=== PATIENT | female | born 1940 | race Caucasian/White ===

== ENCOUNTER 2019-02-07 19:55 | Inpatient (IN) | payer OTHER ==
[~2019-02-07] VITALS: Ht 167.6 cm; Wt 65.3 kg
[2019-02-07 20:29] LABS: BE(vivo) -3.6 mmol/L (-2 to +3); HCO3 24.5 mmol/L (22.0-26.0); PCO2 58.1 mmHg (35.0-45.0); PO2 81.7 mmHg (80.0-100.0)
[2019-02-07 20:30] VITALS: BP 127/85
[2019-02-07 20:32] LABS: pH 7.243 (7.360-7.450)
[2019-02-07 20:37] LABS: HEMATOCRIT 34.5 % (37.0-47.0); HEMOGLOBIN 11.5 gm/dL (12.0-15.0); MCH 30.6 pg (26.0-34.0); MCHC 33.4 g/dL (28.0-37.0); MCV 91.8 fL (80.0-100.0); PLATELET COUNT 426 thou/uL (150-400); RBC 3.76 mil/uL (4.20-5.00); RDW 14.8 % (10.5-14.5)
[2019-02-07 20:49] LABS: ANION GAP 14 mmol/L (7-16); BUN 72 mg/dL (7-18); CALCIUM 9.5 mg/dL (8.5-10.1); CHLORIDE 102 mmol/L (98-107); CO2 26 mmol/L (21-32); CREATININE 2.1 mg/dL (0.6-1.0); GLUCOSE 164 mg/dL (74-106); POTASSIUM 4.2 mmol/L (3.5-5.1); SODIUM 142 mmol/L (136-145)
[2019-02-07 20:57] LABS: TROPONIN-I <0.06 ng/mL (<0.06)
[2019-02-07 21:06] LABS: ABSOLUTE NEUTROPHILS 15.6 thou/uL (1.4-8.2); ANISOCYTOSIS 1+; METAMYELOCYTES 5 %; NUCLEATED RBCS 2 /100WBC; POLYCHROMASIA OCCASIONAL
[2019-02-07 21:44] LABS: BE(vivo) -5.1 mmol/L (-2 to +3); HCO3 24.8 mmol/L (22.0-26.0); PO2 205.2 mmHg (80.0-100.0)
[2019-02-07 21:45] VITALS: BP 129/83
[2019-02-07 21:46] LABS: PCO2 73.6 mmHg (35.0-45.0); pH 7.146 (7.360-7.450)
[2019-02-07 22:20] LABS: BE(vivo) -7.6 mmol/L (-2 to +3); HCO3 23.3 mmol/L (22.0-26.0); PO2 249.2 mmHg (80.0-100.0); sO2 99.2 % (92.0-98.0)
[2019-02-07 22:22] LABS: PCO2 79.3 mmHg (35.0-45.0); pH 7.086 (7.360-7.450)
--- NOTE | 2019-02-07 22:45 | NUR ---
PT SEDATED AND INTUBATED BY DR JAEGER, AND PROPOFOL WAS STARTED. SEE EMAR.
--- NOTE | 2019-02-07 22:55 | NUR ---
HUGGINS CATHETER INSERTED.
[2019-02-08] VITALS (34 sets, daily range): BP systolic 105–151; BP diastolic 64–91
[2019-02-08 00:59] LABS: BE(vivo) -4.9 mmol/L (-2 to +3); HCO3 22.6 mmol/L (22.0-26.0); PO2 97.3 mmHg (80.0-100.0); sO2 96.3 % (92.0-98.0)
[2019-02-08 01:00] LABS: pH 7.248 (7.360-7.450)
[2019-02-08 05:20] LABS: HEMATOCRIT 30.5 % (37.0-47.0); HEMOGLOBIN 9.8 gm/dL (12.0-15.0); MCH 29.6 pg (26.0-34.0); MCHC 32.1 g/dL (28.0-37.0); MCV 92.4 fL (80.0-100.0); RBC 3.3 mil/uL (4.20-5.00); RDW 15.2 % (10.5-14.5); WBC 15.4 thou/uL (4.0-11.0)
[2019-02-08 05:31] LABS: HCO3 23.4 mmol/L (22.0-26.0); PCO2 52.9 mmHg (35.0-45.0); PO2 93.6 mmHg (80.0-100.0); pH 7.263 (7.360-7.450)
[2019-02-08 05:32] LABS: CALCIUM 8.6 mg/dL (8.5-10.1); CREATININE 1.8 mg/dL (0.6-1.0); POTASSIUM 3.8 mmol/L (3.5-5.1)
--- NOTE | 2019-02-08 05:49 | NUR ---
ADMISSION NOTE: ADMITTED IN FAIR CONDITION. NO FAMILY AT BEDSIDE. UNABLE TO ACQUIRE A DETIALED ADMISSION D/T PT BEING INTUBATED. TALKED TO DR. HERNANDEZ DURING THE NIGHT ABOUT CRITICAL ABGS AND PT'S STATUS. PT SEDATED ON PROPOFOL. FOLLOW COMMANDS OF SEDATION. DOES GET AGITATED. VSS. LOW GRADE TEMP. OG AT 57, MINIMAL OUTPUT. HUGIGNS IN PLACE AND OUTPUT NOTED. WILL CONTINUE TO MONITOR PT.
--- NOTE | 2019-02-08 05:52 | NUR ---
SEDATED ON VENT. RESTRAINTED FOR SAFETY. VSS. LOW GRADE TEMP. GET RESTLESS WITH ANY MINOR MOVEMENT ON SEDATION. OUTPUTS NOTED. INFORMED DR. HERNANDEZ ABOUT CRITICAL AM ABGS NO NEW ORDERS RECIEVED. WILL CONINTUE TO MONITOR
--- NOTE | 2019-02-08 08:27 | EKG ---
[place] [address] [facility] [employer] [place] [address] ELECTROCARDIOGRAM REPORT Name: AIMEE JHAVERI Room #: 243-P ADM IN M.R.#: [id number] ������������������ Admission: 02/07/19 ������������������ Attend Phys: Jonathan Narayan MD Discharge: ������������������ Date of : 44 Report #: [id number] ����������������������������������������������������������������� [id number] THIS REPORT FOR: //name// [facility] ED Test Date: 2019-02-07 Test Time: 20:40:58 Pat Name: AIMEE JHAVERI Department: Room: [facility] Gender: F 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: jlamblorraine : 1940 Requested By: Jose Angel Salmon Order Number: [id number] MD: Robin Bonilla Measurements Intervals [place] Rate: 116 P: 75 SD: 124 QRS: 61 QRSD: 94 T: -77 QT: 368 QTc: 512 Interpretive Statements Sinus tachycardia Nonspecific ST and T wave abnormality Prolonged QT interval Baseline wander in multiple lead(s) No previous ECG available for comparison Electronically Signed On 02-08-2019 8:27:17 CDT by Robin Bonilla [email or web address] ��������������������������������������������� <ELECTRONICALLY SIGNED> ���������������������������������������� By: Robin Bonilla MD, [facility] ��������������������������������������������� 02/08/19 0827 39 39 Robin Bonilla MD, [facility] /EPI
[2019-02-08] MEDS ORDERED: VENTOLIN HFA 1818 GM INH (09:49)
[2019-02-08] MEDS ORDERED: LIPITOR40 MG PO (09:49)
[2019-02-08] MEDS ORDERED: IPRAT-ALBUT 0.5-3 ML INH (09:50)
[2019-02-08] MEDS ORDERED: FOSAMAX 70 MG T70 MG PO (09:50)
[2019-02-08] MEDS ORDERED: ADVAIR HFA 230M12 GM INH (09:51)
[2019-02-08] MEDS ORDERED: EFFEXOR XR150 MG PO (09:51)
--- NOTE | 2019-02-08 14:24 | 2DMMODE ---
[facility] [address] [email or web address] [address] 2 D/M-MODE ECHOCARDIOGRAM Name: AIMEE JHAVERI Room #: 243-P ADM IN M.R.#: [id number] ������������� Admission: 02/07/19 ������������� Attend Phys: Jonathan Narayan Discharge: ��� ������������� ��� Date of : 44 Date of Service: 02/08/19 1424 �� Report #: [id number] �������� ��������������������������������������������[id number] THIS REPORT FOR: //name// APPROVED REPORT Study performed: 02/08/2019 12:50:43 EXAM: Comprehensive 2D, Doppler, and color-flow Echocardiogram Patient Location: ER Room #: 243 Status: routine BSA: 1.65 HR: 98 bpm BP: 112/66 mmHg Rhythm: NSR Other Information Study Quality: Adequate/Only subcostal views. Technically limited study due to COPD, patient in ICU on vent. Indications COPD Exacerbation, short of breath. 2D Dimensions IVSd: 7.94 (7-11mm) LVOT Diam: 19.95 (18-24mm) LVDd: 44.00 mm PWd: 9.01 (7-11mm) LVDs: 26.42 (25-40mm) Aortic Root: 31.69 mm Aortic Valve AoV Peak Fabiano.: 1.59 m/s AO Peak Gr.: 10.08 mmHg LVOT Max P.37 mmHg LVOT Max V: 1.05 m/s OLLIE Vmax: 2.06 cm2 Mitral Valve E/A Ratio: 0.7 MV Decel. Time: 157.37 ms MV E Max Fabiano.: 0.71 m/s MV A Fabiano.: 1.02 m/s MV PHT: 45.64 ms IVRT: 69.20 ms [facility] [address] [address] 2 D/M-MODE ECHOCARDIOGRAM Name: AIMEE JHAVERI Room #: [address] [place] [address] IN [facility].#: [id number] ������������� Admission: 02/07/19 ������������� Attend Phys: Jonathan Narayan Discharge: ��� ������������� ��� Date of : 44 Date of Service: 02/08/19 1424 �� Report #: [id number] �������� ��������������������������������������������[id number] Pulmonary Valve PV Peak Fabiano.: 1.39 m/s PV Peak Gr.: 7.69 mmHg Tricuspid Valve TR Peak Fabiano.: 4.51 m/s RAP Estimate: 10.00 mmHg TR Peak Gr.: 81.42 mmHg PA Pressure: 91.00 mmHg Left Ventricle The left ventricle is normal size. There is normal LV segmental wall motion. There is normal left ventricular wall thickness. Left ventricular systolic function is normal. LVEF is 55-60%. Mild diastolic dysfunction is present (impaired relaxation pattern). Right Ventricle The right ventricle is normal size. The right ventricular systolic function is normal. Atria The left atrium size is normal. The right atrium size is normal. Aortic Valve The aortic valve is normal in structure. Trace aortic regurgitation. There is no aortic valvular stenosis. Mitral Valve The mitral valve is normal in structure. Trace mitral regurgitation. Tricuspid Valve The tricuspid valve is normal in structure. Moderate tricuspid regurgitation. Severe pulmonary hypertension with an estimated PAP of 90mmHg. Pulmonic Valve The pulmonary valve is normal in structure. There is no pulmonic valvular regurgitation. Great Vessels The aortic root is normal in size. The ascending aorta is normal in size. IVC is dilated and collapses >50% with inspiration. Pericardium [facility] [place] [address] 2 D/M-MODE ECHOCARDIOGRAM Name: AIMEE JHAVERI Room #: 243-P ADM IN M.R.#: [id number] ������������� Admission: 02/07/19 ������������� Attend Phys: Jonathan Narayan Discharge: ��� ������������� ��� Date of : 44 Date of Service: 02/08/19 142 �� Report #: [id number] �������� ��������������������������������������������[id number] There is no pericardial effusion. <Conclusion> Left ventricular systolic function is normal. There is normal LV segmental wall motion. LVEF is 55-60%. Mild diastolic dysfunction is present (impaired relaxation pattern). The aortic valve is normal in structure. Trace aortic regurgitation, no stenosis. The mitral valve is normal in structure. Trace mitral regurgitation. Moderate tricuspid regurgitation. Severe pulmonary hypertension with an estimated pulmonary artery pressure of 90mmHg. There is no pericardial effusion. ��������������������������������������������� <ELECTRONICALLY SIGNED> ���������������������������������������� By: Robin Bonilla MD, [facility] ��������������������������������������������� 02/08/19 1424 1424 142 Robin Bonilla MD, [facility] /INF
[2019-02-08 15:11] LABS: BE(vivo) -2.2 mmol/L (-2 to +3); PCO2 47.2 mmHg (35.0-45.0); PO2 129.9 mmHg (80.0-100.0); pH 7.324 (7.360-7.450); sO2 98.4 % (92.0-98.0)
--- NOTE | 2019-02-08 18:39 | NUR ---
SHIFT SUMMARY: PATIENT ON THE VENT AND LIGHTLY SEDATED, WHEN STIMULATED GETS RESTLESS AND TRIES TO REACH FOR THE ETT. VITALS STABLE. FAMILY UPDATED OVER THE PHONE. NO CPAP TRIAL TODAY. CONTINUES TO PRODUCE ALOT OF THICK YELLOW SECRETIONS THROUGH THE ETT TUBE AND LAVAGED A FEW TIMES. THIS EVENING DURING A TURN PATIENT STARTED COUGHING AND BECAME RESTLESS. SHE STARTED DESATURATING AND WAS BAGGED FOR APPROX 5 MINUTES. O2 SAT CAME BACK UP TO 100% AND WAS LAVAGED SEVERAL TIMES, BLOOD TINGED SPUTUM SUCTIONED AND BY THEN RT AT THE BEDSIDE AND GAVE BREATHING TREATMENT. PATIENT IS NOW RESTING AND SATS 100%
[2019-02-09] VITALS (24 sets, daily range): BP systolic 98–155; BP diastolic 53–84
[2019-02-09 05:26] LABS: HEMATOCRIT 28.6 % (37.0-47.0); HEMOGLOBIN 9.3 gm/dL (12.0-15.0); MCH 30.6 pg (26.0-34.0); MCHC 32.6 g/dL (28.0-37.0); MCV 93.9 fL (80.0-100.0); RBC 3.04 mil/uL (4.20-5.00); RDW 15.5 % (10.5-14.5); WBC 19.6 thou/uL (4.0-11.0)
[2019-02-09 05:41] LABS: CALCIUM 8.7 mg/dL (8.5-10.1); CREATININE 1.6 mg/dL (0.6-1.0); POTASSIUM 3.5 mmol/L (3.5-5.1)
--- NOTE | 2019-02-09 05:50 | NUR ---
PT IS SEDATED ON VENT. PROPOFOL AT 60 MCGS. FOLLOWS SIMPLE COMMANDS. VSS. AFEBRILE. MEDICATED FOR PAIN RELIEF. TOLERATING VENT SETTINGS. OG IN PLACR OUTPUT NOTED. URINE OUTPUT NOTED. FREQUENT TURNS. WILL CONTINUE TO MONITOR.
--- NOTE | 2019-02-09 14:39 | NUR ---
Nutrition: RD received consult for nutrition support recommendations. Propofol providing 448 kcals from lipid at this time. Suggest Vital HP formula to run at 40 mL/hr goal rate with present amount of sedation.
--- NOTE | 2019-02-09 18:39 | HC ---
[facility] [place] [address] [address] CONSULTATION Name: AIMEE JHAVERI Room #: [facility] ADM IN M.R.#: [id number] Admission: 02/07/19 ������������������ Attend Phys: Jonathan Narayan MD Discharge: ������������������ Date of : 44 Report #: [id number] THIS REPORT FOR: //name// [facility]: [facility] DATE OF SERVICE: 02/08/2019 PULMONARY CONSULTATION REFERRAL PHYSICIAN: Deo Cherry M.D. REASON FOR REFERRAL: Acute respiratory failure. HISTORY OF PRESENT ILLNESS: The patient is a 78-year-old white female with history of COPD, who presents to the ED with acute respiratory distress. A Pulmonary consultation was requested. History is limited. The patient is currently intubated. She was also not able to provide much history on arrival to the ED due to acute respiratory distress. She was subsequently intubated. The patient has a known history of COPD, though severity is unknown. She was complaining of recent onset of cough, dyspnea. Saturation was said to be at 73% on 4 liters of O2. With acute respiratory distress, she was electively intubated in the ED. Chest x-ray performed shows mild right lower lobe interstitial infiltrates. ET tube is approximately 2 cm above the nicole. PAST MEDICAL HISTORY: Incomplete. This include history of COPD. The patient has smoked in the past. PAST SURGICAL HISTORY: Unknown. ALLERGIES: None. HOME MEDICATIONS: Unknown. FAMILY HISTORY: Unknown. SOCIAL HISTORY: Tobacco history as mentioned above. REVIEW OF SYSTEMS: Deferred as the patient is intubated. PHYSICAL EXAMINATION: [facility] [address] [place] [address] CONSULTATION Name: AIMEE JHAVERI Room #: 243-P ADM IN M.R.#: [id number] Admission: 02/07/19 ������������������ Attend Phys: Jonathan Narayan MD Discharge: ������������������ Date of : 44 Report #: [id number] GENERAL: On examination, she is sedated. VITAL SIGNS: Temperature is 97.7 degrees Fahrenheit, pulse is 90, respiratory rate is 20, blood pressure 110/71 mmHg and saturation is 97%. HEENT: Normocephalic, atraumatic. NECK: Supple, without any lymphadenopathy or thyromegaly. CHEST: Breath sounds are fair, with mild expiratory wheezes. No rales. CARDIOVASCULAR: Normal S1, S2. There are no murmurs or gallops. There is no JVD. There is no carotid bruit. Pulses are 2+/4+ bilaterally. ABDOMEN: Soft, nontender. No organomegaly or masses felt. GENITOURINARY: Deferred. RECTAL: Deferred. EXTREMITIES: There is no edema, cyanosis or clubbing. NEUROLOGICAL EXAMINATION: Deferred as the patient is intubated. LABORATORY DATA: Lactic acid is 1.1. BNP is 4200. Echocardiogram shows normal LV function, mild diastolic dysfunction. No valvular abnormalities. Pulmonary artery pressure measured 90 mmHg. Sodium 140, potassium 3.8, chloride 107, CO2 is 27, BUN is 68 and creatinine is 1.8; it was 2.1 on admission. WBC 20,000, hemoglobin is normal and platelets are normal with significant bandemia. Initial arterial blood gas showed pH of 7.08, pCO2 of 79 and pO2 of 249 on FiO2 at 80%. IMPRESSION: 1. Acute hypercapnic hypoxic respiratory failure in this 78-year-old white female with history of chronic obstructive pulmonary disease. Arterial blood gas suggests hypercapnia is acute. She has a history of tobacco use. 2. Mild right lower lobe infiltrate, pneumonia suspected. 3. Renal insufficiency, unclear if this is acute or chronic. We will need to follow renal function closely. RECOMMENDATIONS: Agree with corticosteroids, bronchodilators and broad-spectrum antibiotics. Note that Levaquin has had multiple black box warning in its use. We will consider alternative atypical coverage. DVT and GI prophylaxis recommended. Follow renal function closely. Obtain medical records, all records if able pertaining to chronic obstructive pulmonary disease and questionable renal disease. Thank you for this consultation. ��������������������������������������������� <ELECTRONICALLY SIGNED> ���������������������������������������� By: Harman Chapman MD ��������������������������������������������� 02/09/19 1839 1057 1120 Harman Chapman MD /nt
--- NOTE | 2019-02-09 19:14 | NUR ---
ASSUMED CARE THIS AM. SUPINE IN BED AND EYES CLOSED. PROPOFOL HELD AND AWOKE AND FOLLOWED COMMANDS APPROPRIATELY. NODS HEAD NO TO "ARE YOU IN PAIN".. OGT PLACED YESTERDAY AND KUB COMPLETED TODAY. TUBE IN GOOD POSITION AND VITAL HF STARTED AT 20/HR WITH GOAL OF 40. SPOKE WITH SISTER IN LAW ON PHONE AND UPDATED HER ON POC AND PROGRESS.
[2019-02-10] VITALS (24 sets, daily range): BP systolic 96–133; BP diastolic 52–77
[2019-02-10] MEDS ORDERED: ADVAIR HFA 230M12 GM INH (02:40)
[2019-02-10] MEDS ORDERED: INCRUSE ELLI62.5 MCG INH (02:42)
[2019-02-10 05:08] LABS: HEMATOCRIT 30.2 % (37.0-47.0); HEMOGLOBIN 9.8 gm/dL (12.0-15.0); MCHC 32.3 g/dL (28.0-37.0); MCV 92.8 fL (80.0-100.0); RBC 3.25 mil/uL (4.20-5.00); RDW 15.5 % (10.5-14.5); WBC 21.6 thou/uL (4.0-11.0)
[2019-02-10 05:21] LABS: CALCIUM 8.7 mg/dL (8.5-10.1); CREATININE 1.2 mg/dL (0.6-1.0); POTASSIUM 4.1 mmol/L (3.5-5.1)
[2019-02-10 05:52] LABS: BE(vivo) -2.9 mmol/L (-2 to +3); HCO3 23.5 mmol/L (22.0-26.0); PCO2 47.9 mmHg (35.0-45.0); PO2 85.1 mmHg (80.0-100.0); sO2 95.5 % (92.0-98.0)
[2019-02-10 05:53] LABS: pH 7.308 (7.360-7.450)
--- NOTE | 2019-02-10 06:00 | NUR ---
No event last night. Pt remains stable in this shift. No changes from conditions from previous assessment. Continue to monitor her closely.
[2019-02-11] VITALS (24 sets, daily range): BP systolic 95–128; BP diastolic 57–73
[2019-02-11 04:53] LABS: BE(vivo) -1.4 mmol/L (-2 to +3); HCO3 24.5 mmol/L (22.0-26.0); PCO2 45.9 mmHg (35.0-45.0); pH 7.345 (7.360-7.450); sO2 95.7 % (92.0-98.0)
[2019-02-11 07:19] LABS: HEMATOCRIT 27.1 % (37.0-47.0); HEMOGLOBIN 8.8 gm/dL (12.0-15.0); MCH 29.9 pg (26.0-34.0); MCHC 32.6 g/dL (28.0-37.0); MCV 91.6 fL (80.0-100.0); PLATELET COUNT 323 thou/uL (150-400); RBC 2.96 mil/uL (4.20-5.00); RDW 15.4 % (10.5-14.5); WBC 25.6 thou/uL (4.0-11.0)
[2019-02-11 07:32] LABS: CALCIUM 8.8 mg/dL (8.5-10.1); CREATININE 1.3 mg/dL (0.6-1.0); POTASSIUM 4.4 mmol/L (3.5-5.1)
[2019-02-11 07:43] LABS: ABSOLUTE NEUTROPHILS 20.7 thou/uL (1.4-8.2); METAMYELOCYTES 5 %; MYELOCYTES 1 %; PLATELET ESTIMATE NORMAL
--- NOTE | 2019-02-11 07:59 | NUR ---
END OF SHIFT SUMMARY: Pt slowly progressing toward goals. Still has large amount of thick yellow secretions, but less than at beginning of shift. Afebrile this shift. Tolerating tube feeding. Urine output adequate, 1050 cc out this shift. Skin integrity remains intact.
--- NOTE | 2019-02-11 08:26 | HC ---
[facility] [place] [address] [address] CONSULTATION Name: AIMEE CORDERO Room #: [facility] IN M.R.#: [id number] Admission: 02/07/19 ������������������ Attend Phys: Jonathan Narayan MD Discharge: ������������������ Date of : 44 Report #: [id number] THIS REPORT FOR: //name// CC: [facility] DATE OF SERVICE: 02/10/2019 CONSULTATION: Infectious diseases. HISTORY OF PRESENT ILLNESS: Aimee Cordero is a 78-year-old white female with diagnosis of COPD. Apparently, the patient gets around okay at home without oxygen. She has been sick for a week and refusing to come to the doctor. She became more ill and her daughter insisted that she seek help. At urgent care, she was transferred immediately to the ER. In the ER, she was found to have significant cough, shortness of breath, and O2 saturation of 73% on 4 liters. She did not improve adequately with CPAP and continued to have CO2 retention with acidosis, required intubation in the ER. Infectious Disease consultation was requested when 1 of 2 blood cultures from the ER comes back with Gram-positive cocci. PAST MEDICAL HISTORY: Somewhat incomplete as the patient was not able to give any cogent history due to her extremis. We do not have any old records in our files. The only diagnosis I have is COPD. We have no history of any allergy. SOCIAL HISTORY: The patient's facesheet lists her as single. I believe she lives with her daughter. There is a past history of tobacco but she quit. I have no history of alcohol or drugs. REVIEW OF SYSTEMS: Unavailable as the patient is sedated on a ventilator. PHYSICAL EXAMINATION: GENERAL: The patient appears older than her stated age, critically ill, but stable, not in distress. VITAL SIGNS: Show the temperature is normal since coming to the hospital. SKIN: Appears somewhat sallow but without rashes or lesions nor exanthem. ENT: Demonstrates nasogastric and endotracheal tubes in position. CHEST: Breath sounds are diminished. The patient currently has 98% saturation with a FiO2 of 45% on the ventilator with 10% of PEEP. ABDOMEN: Belly is thin, soft, not tender. EXTREMITIES: Unremarkable. NEUROLOGIC: Neurological status is sedated on Diprivan and is essentially unresponsive. LABORATORY AND DIAGNOSTIC DATA: White count is 21.6; it has been in this range since admission. Hemoglobin 9.8, platelet 290,000. Electrolytes normal. [address] [address] CONSULTATION Name: AIMEE CORDERO Room #: 243-P ADM IN [facility].#: [id number] Admission: 02/07/19 ������������������ Attend Phys: Jonathan Narayan MD Discharge: ������������������ Date of : 42 Report #: [id number], creatinine 1.6. The nasal screen is positive for MRSA. Sputum cultures growing Staph aureus with sensitivity studies pending. One of 2 blood cultures from admission has Gram-positive cocci. Chest x-ray shows COPD, possible lower lobe infiltrate. Echocardiogram shows severe pulmonary artery hypertension, estimated pulmonary pressure of 90. IMPRESSION: In summary, the patient with chronic obstructive pulmonary disease with marked exacerbation and respiratory failure. She has staph in the sputum, MRSA in the nares and 1 out of 2 blood cultures with Gram-positive cocci. Clearly, the patient needs coverage for MRSA. With pneumonia and elevated creatinine, linezolid would be an excellent choice. I will change the vancomycin to linezolid 600 mg IV every 12 hours. We will continue Zosyn. With Staph on cultures, this is unlikely to be an atypical mycoplasma, chlamydia, legionella type pneumonia. We will go ahead and discontinue the doxycycline. The patient will need followup blood cultures to see if the one out of two blood culture is a contaminant or a true pathogen, especially if it turns on culture to be a coag negative staph. If the patient does not have bacteremia, we will probably want to place a PICC line as I suspect this will be a relatively long course of parenteral antibiotic and medications to get the patient over this acute illness. I appreciate the opportunity to offer input in the care of the patient. We will continue Zyvox and Zosyn through the weekend. Dr. Jaimes will return on Tuesday for additional infectious disease followup. Thank you for this consultation. ��������������������������������������������� <ELECTRONICALLY SIGNED> ���������������������������������������� By: Jareth Powell MD ��������������������������������������������� 02/11/19 0826 2328 0031 Jareth Powell MD /nt
--- NOTE | 2019-02-11 16:29 | NUR ---
PATIENT ASSESSMENTS AND VITAL SIGNS DOCUMENTED. PLAN OF CARE IS TO CONTINUE TO MONITOR PATIENT STATUS, VITAL SIGNS, TURN Q2 HOURS, AND INITIATE WEANING TRIALS. NURSE INFORMED RT OF WEANING TRIAL ORDER PER PROTOCOL PER DR. HERNANDEZ.
--- NOTE | 2019-02-11 16:44 | NUR ---
NURSE NOTIFIED DR. DELGADILLO OF TODAYS EVENTS AND LOW URINE OUTPUT. ORDERS RECEIVED TO IMPROVE BLOOD PRESSURE AND TO GIVE ANOTHER DOSE OF LASIX TONIGHT.
[2019-02-12] VITALS (25 sets, daily range): BP systolic 80–141; BP diastolic 50–75
--- NOTE | 2019-02-12 07:53 | NUR ---
END OF SHIFT SUMMARY: Pt progressing slowly toward goals. Requiring less suctioning, sputum less copious and thick. Upper lung cope clear, bases remain coarse and diminished. Titrating propofol gtt down in prepatation for possible CPAP trials today. Tolerating tube feeding, residuals 5-20 cc q 4 hrs. Pt had several liquid stools during the night. Skin integrity remains intact.
[2019-02-12 09:45] LABS: BE(vivo) 1.2 mmol/L (-2 to +3); HCO3 26.2 mmol/L (22.0-26.0); PCO2 43.3 mmHg (35.0-45.0); PO2 88.5 mmHg (80.0-100.0); sO2 96.7 % (92.0-98.0)
--- NOTE | 2019-02-12 09:55 | NUR ---
INITIAL ASSESSMENT: Consult received. DELFINA reviewed chart and spoke with nursing. Pt was admitted from home due to hypercapneic respiratory failure/exacerbation of COPD/sepsis. Pt is currently on IV abx and on the ventilator. Pt to have cpap trials today. Pt is alert, but unable to answer questions appropriately. DELFINA spoke wiht pt's brother and eopcpr-me-col, Zev, via phone to provide update and obtain info. Prior to admission, pt was living at home. Pt's niece and great niece live with her. Pt has 4 steps to enter her home and no steps inside. Pt did not use any DME for ambulation and has home O2. Pt's family is unsure of home O2 provider. Pt is normally on 2L via NC. No hx of HH services or SNF/Rehab placement. Pt's PCP is Dr. Halle Barraza. Will need orders for therapy evals once off the ventilator. DELFINA is following to assist as needed with discharge planning.
--- NOTE | 2019-02-12 17:04 | NUR ---
ASSUMED CARE @ 0700 02/12/19, PT ASSESSMENTS AND VSS COMPLETE PER ICU PROTOCOL. PT NOT FOLLOWING COMMANDS EVEN ON SEDATION VACATION, BUT WAS AWARE ENOUGH TO ATTEMPT TO PULL ETT TUBE, PT IS IN RESTRAINTS FOR PROTECTION AGAINST SELF EXTUBATION, PROPOFOL GTT IN PLACE FOR VENT MANAGEMENT. PT ON THE VENT, PLEASE SEE PROCESS INTERVENTIONS FOR VENT SETTINGS, NO SIGNS OF SOA, PT ABLE TO LAST ON CPAP FOR 2 HOURS, EQUAL CHEST EXPANSION NOTED. PT IN ST WITH PVC'S ON THE MONITOR. OG IN PLACE, TF RUNNING AT GOAL, LOW RESIDUALS NOTED, PT HAS HAD TWO BM'S DURING THIS SHIFT. HUGGINS IN PLACE, GOP NOTED. FALL PRECAUTIONS IN PLACE, PLAN OF CARE- CONT TO MONITOR.
[2019-02-13] VITALS (24 sets, daily range): BP systolic 80–123; BP diastolic 51–77
[2019-02-13 04:55] LABS: HEMATOCRIT 27.9 % (37.0-47.0); HEMOGLOBIN 9.1 gm/dL (12.0-15.0); MCH 30.3 pg (26.0-34.0); MCHC 32.5 g/dL (28.0-37.0); MCV 93.5 fL (80.0-100.0); RBC 2.98 mil/uL (4.20-5.00); RDW 16.4 % (10.5-14.5); WBC 23.2 thou/uL (4.0-11.0)
[2019-02-13 05:10] LABS: CALCIUM 8.5 mg/dL (8.5-10.1); CREATININE 0.9 mg/dL (0.6-1.0); POTASSIUM 4.8 mmol/L (3.5-5.1)
--- NOTE | 2019-02-13 07:30 | NUR ---
ASSUMED CARE OF PT AT 1900. PT SEDATED ON PROPOFOL. SEDATION VACATION ATTEMPTED, BUT PT GOT RESTLESS AND BECAME ASYNCHRONOUS WITH THE VENT. PT UNABLE TO FOLLOW COMMANDS AT THIS TIME. SR/ST. VSS. GOOD UO. TOLERATING TUBE FEEDINGS.
--- NOTE | 2019-02-13 17:56 | NUR ---
ASSUMED CARE @ 0700 02/13/19, PT ASSESSMENTS AND VSS COMPLETE PER ICU PROTOCOL. SEDATION SWITCHED TO PRECEDEX ON THIS SHIFT. PT ABLE TO FOLLOW SOME COMMANDS AT THIS TIME AEB SQUEEZING HANDS AND MOVING FOOT TO COMMAND. PT SR-ST ON THE MONITOR, EDEMA NOTED, SEE PROCESS INTERVENTIONS FOR SPECIFICS. PT STILL ON THE VENT, SAME SETTINGS, PT LASTED ON 15 ON CPAP TRIAL. OG IN PLACE TO TF RUNNING AT GOAL, LOW RESIDUALS NOTED, HUGGINS IN PLACE, GREAT OUTPUT NOTED. RESTRAINTS STILL IN PLACE FOR PROTECTION AGAINST SELF- EXTUBATION. LIVING WILL AND DPOA PAPER WORK BROUGHT BY FAMILY MEMBERS. PT CHANGED TO NO CODE, PLAN OF CARE- CONT TO MONITOR.
[2019-02-14] VITALS (40 sets, daily range): BP systolic 62–117; BP diastolic 34–73
[2019-02-14 04:57] LABS: HEMOGLOBIN 8.5 gm/dL (12.0-15.0); MCH 30.3 pg (26.0-34.0); MCHC 32.6 g/dL (28.0-37.0); MCV 93.1 fL (80.0-100.0); PLATELET COUNT 233 thou/uL (150-400); RBC 2.79 mil/uL (4.20-5.00); RDW 15.5 % (10.5-14.5); WBC 18.3 thou/uL (4.0-11.0)
[2019-02-14 05:11] LABS: BE(vivo) 6.1 mmol/L (-2 to +3); HCO3 31.5 mmol/L (22.0-26.0); PCO2 49.3 mmHg (35.0-45.0); PO2 80.3 mmHg (80.0-100.0); pH 7.423 (7.360-7.450); sO2 95.9 % (92.0-98.0)
[2019-02-14 05:13] LABS: ALBUMIN 1.7 g/dL (3.4-5.0); CALCIUM 8.3 mg/dL (8.5-10.1); CREATININE 1.2 mg/dL (0.6-1.0); POTASSIUM 4.7 mmol/L (3.5-5.1); TOTAL BILIRUBIN 0.4 mg/dL (<0.1-1.0); TOTAL PROTEIN 5.3 g/dL (6.4-8.2)
--- NOTE | 2019-02-14 05:32 | NUR ---
ASSUMED CARE OF PT AT 1900. PT SEDATED ON PRECEDEX AT 1900. PT CONTINUOSLY THRASHING IN BED TURNING HEAD BACK AND FORTH AND ATTEMPTING TO SIT UP IN BED. PT ABLE TO INTERMITTENTLY FOLLOW COMMANDS, BUT REQUIRED A LOT OF VERBAL DIRECTIONS. PRN MORPHINE GIVEN PER CPOT PAIN SCALE. AT 0010 DR MARTINEZ WAS NOTIFIED OF PT's CONTINUOS THRASHING DESPITE PRECEDEX AND MORPHINE GTT. ORDERS FOR PROPOFOL GTT TO RESUME GIVEN. PROPOFOL TITRATED PER VENT MANAGMENT. SR/ST ON THE MONITOR. BP SOFT. GOOD UO. PT HAS HAD MULTIPLE LOOSE BLACK STOOLS. AM LABS REVIEWED.
[2019-02-14 05:53] LABS: ABSOLUTE NEUTROPHILS 15.9 thou/uL (1.4-8.2); PLATELET ESTIMATE NORMAL
--- NOTE | 2019-02-14 13:03 | NUR ---
FAMILY SPOKE WITH BRETT BARFIELD AND REQUESTED PT BE EXTUBATED. PRECEDEX WAS STARTED. PROPOFOL WAS WEANED OFF. AT 1209 PT WAS EXTUBATED BY RT. PATIENT PLACED ON 2L NC. RESTRAINTS REMOVED. FAMILY BROUGHT TO BEDSIDE. MORPHINE GTT STARTED.
--- NOTE | 2019-02-14 17:02 | NUR ---
SW reviewed chart and spoke with nursing and attending physician. Pt's family spoke with physicians. Decision made to withdraw care. Pt was extubated earlier today. DELFINA is following to assist as needed with discharge planning.
[2019-02-15] VITALS (7 sets, daily range): BP systolic 61–73; BP diastolic 36–41
--- NOTE | 2019-02-15 04:53 | NUR ---
ASSUMED PT CARE AT 1900. PT IS ON COMFORT CARE MEASURE. NO FAMILY AT BEDSIDE. PT IS LETHARGIC AND NOT RESPONDING. PT IS PLACED ON MORPHINE DRIP. VITAL SIGNS STABLE. CONTINUE TO MONITOR PATIENT.
--- NOTE | 2019-02-15 15:15 | NUR ---
SW reviewed chart and spoke with attending physician. Pt remains on comfort care measure. Morphine gtt started. No family present at bedside. SW is available to assist should needs arise.
--- NOTE | 2019-02-15 18:31 | NUR ---
nurse provided bath to patient for comfort. She increased breath effort. Nurse increased morphine for comfort per MD orders. She at 1811. Nurse then notified family and all consults, as well as MTN.
--- NOTE | 2019-02-15 19:06 | NUR ---
Patient at 1811. Time of is 1811. However, since patient was tranfered to a room, in the computer only, and did not leave ICU due to passing away condition the computer system will not allow RN to discharge patient at time of of 1811. The computer system will only allow RN to discharge her at 1844, which is slightly after the time she was transfered to ICU in the computer. Patient never left the ICU room for this.
== END 2019-02-15 18:45 | DRG 870 ==
LOC: ER 19:55 → ICU 22:09 → EROBS 22:09 → ICU 02-08 00:34 → 4W 02-15 17:43 → ICU 02-15 18:41
PROVIDERS: Emergency Medicine; Hospitalist; Internal Medicine Pulmonary Disease; Nurse Practitioner Family; Pediatrics; ADMIT Internal Medicine
PROC: 5A1955Z Respiratory Ventilation, Greater than 96 Consecutive Hours (ICD-10-PCS; principal; 2019-02-08)
PROC: 0BH17EZ Insertion of Endotracheal Airway into Trachea, Via Natural or Artificial Opening (ICD-10-PCS; principal; 2019-02-08)
DX: A41.9 Sepsis, unspecified organism (principal); J96.02 Acute respiratory failure with hypercapnia; J18.9 Pneumonia, unspecified organism; J96.01 Acute respiratory failure with hypoxia; J44.1 Chronic obstructive pulmonary disease with (acute) exacerbation; N17.9 Acute kidney failure, unspecified; G93.40 Encephalopathy, unspecified; J44.0 Chronic obstructive pulmonary disease with (acute) lower respiratory infection; T38.0X5A Adverse effect of glucocorticoids and synthetic analogues, initial encounter; R65.20 Severe sepsis without septic shock; I27.20 Pulmonary hypertension, unspecified; Z87.891 Personal history of nicotine dependence; Y92.89 Other specified places as the place of occurrence of the external cause; Z79.899 Other long term (current) drug therapy
CPT/HCPCS: 10078